=== PATIENT | male | born 1965 | race Caucasian/White ===

== ENCOUNTER 2020-05-18 07:34 | Day surgery (SDC) | payer OTHER ==
[2020-05-16 14:16] LABS: BASOPHIL % 0.6 % (0.2-1.5); PLATELET COUNT 223 x10^3mcL (152-348); RED CELL DISTRIBUTION WIDTH 13.9 % (12.1-16.2)
[2020-05-16 14:29] LABS: CALCIUM 8.9 mg/dL (8.5-10.1); CARBON DIOXIDE 26.3 mmol/L (21-32); CHLORIDE SERUM 102 mmol/L (98-107); CREATININE SERUM 0.9 mg/dL (0.7-1.3); GFR1 > 60 mL/min; GLUCOSE SERUM 106 mg/dL (74-106); POTASSIUM SERUM 4.4 mmol/L (3.5-5.1); SODIUM SERUM 138 mmol/L (136-145)
--- NOTE | 2020-05-17 15:11 | NUR ---
CXR AND LAB TESTS SENT TO [facility] FOR REVIEW. DR. Sandra FRAGOSO OFFICE CALLED REGARDING H&P BLANE TWE DON'T HAVE YET. WAITING FOR RETURN CALL.
[~2020-05-18] VITALS: Ht 185.4 cm; Wt 108.9 kg
[2020-05-18 08:14] VITALS: BP 152/94
[2020-05-18 16:08] VITALS: BP 127/85
== END 2020-05-18 14:30 | disposition home or self-care (01) ==
LOC: DS 07:34 → OR 09:30 → DS 14:30
PROVIDERS: ATTEND Student in an Organized Health Care Education/Training Program
DX: S83.242A Other tear of medial meniscus, current injury, left knee, initial encounter (principal); M23.8X1 Other internal derangements of right knee; M22.42 Chondromalacia patellae, left knee; I10 Essential (primary) hypertension; E66.9 Obesity, unspecified; Z68.31 Body mass index [BMI] 31.0-31.9, adult; Z79.899 Other long term (current) drug therapy; Z98.52 Vasectomy status; X58.XXXA Exposure to other specified factors, initial encounter; Y93.89 Activity, other specified; Y92.89 Other specified places as the place of occurrence of the external cause; Y99.8 Other external cause status
CPT/HCPCS: J0131; J0690; J2175; J2250; J2405; J2704; J3010; J3490; J7120